=== PATIENT | male | born 1940 | race Caucasian/White ===

== ENCOUNTER 2018-04-05 18:20 | Emergency (ER) | payer OTHER, MEDICARE ==
[2018-04-05 18:33] VITALS: TEMP 98; BMI 25.0
--- NOTE | 2018-04-05 19:31 | PDOC ---
History of Present Illness - General History Source: Patient Exam Limitations: No Limitations - History of Present Illness Initial Comments: 04/05/18 20:00 A portion of this note was documented by scribe services under my direction. I have reviewed the details of the note, within reason, and agree with the documentation with the following case summary and management plan written by me. Patient treated in the ED. Nursing notes are reviewed and incorporated into the medical decision-making. Vital signs reviewed. Assessment and plan: This is an 77-year-old male with history of coronary artery disease status post bypass in the past. He comes in complaining of hypertension. Patient's blood pressure is 166/92 here in the emergency department. Patient is on Coreg. Patient was told he should double up the dose of his Coreg however patient said when he does that his blood pressure is good but he gets a headache and feels lightheaded and fatigued. Patient did not take additional medication today. Patient otherwise denies any chest pain, shortness of breath, nausea, diaphoresis or any complaints at this time. Patient has not been put on a second blood pressure medication. I did start patient on losartan and Zofran prescription to his pharmacy and told him to follow-up with his doctor on Thursday and that his doctor know what I started him on and to reevaluate him. Patient discharged home. <Tom Chapman I - Last Filed: 04/05/18 19:59> - History of Present Illness Initial Comments: 04/05/18 20:04 The patient is a 77 year old male, with a significant PMH of CAD s/p bypass and HTN who presents to the emergency department with elevated blood pressure. Patient states his blood pressure is 166/93. The patient is currently on carvedilol two pills twice a day, but typically gets headaches after taking his medication. Patient has not yet discussed this with his primary care physician. The patient denies chest pain, shortness of breath, headache and dizziness. Denies fever, chills, nausea, vomit, diarrhea and constipation. Denies dysuria, frequency, urgency and hematuria. Allergies: NKA Past surgical history: None reported, Social history: No reported alcohol, drug or cigarette use. Adult ROS General: No fevers or chills, no weakness, no weight loss. (+) High bp. HEENT: No change in vision. No sore throat,. No ear pain CardioVascular: No chest pain or shortness of breath Respiratory:No cough, or wheezing. Gastrointestinal: no nausea, vomiting, diarrhea or constipation, No rectal bleeding Genitourinary: No dysuria, hematuria, or frequency Musculoskeletal: No joint or muscle pain or swelling Neurologic: (+) Headache. No vertigo, dizziness or loss of consciousness Psychiatric: nor depression Skin: No rashes or easy bruising Endocrine: no increased thirst or abnormal weight change Allergic: no skin or latex allergy All other systems reviewed and normal Adult Exam: General: Well-nourished well-developed individual, no acute distress HEENT: Throat: Normal, tonsils normal, no erythema or exudate Neck: Supple, no meningeal signs, no lymphadenopathy Eyes::Pupils equal reactive and round, extraocular motion intact Chest: Nontender to palpation Cardiac: S1-S2 normal, regular rate and rhythm, no murmurs rubs or gallops Respiratory: Lungs clear to auscultation bilateral Abdomen: Soft, nondistended, normal bowel sounds, nontender to palpation diffusely Extremities: Warm, dry, no cyanosis, clubbing, or edema Skin: No rashes Neuro: Alert and oriented x3, nonfocal exam, grossly intact, normal gait Psych: Normal mood and affect <Joellen Fairbanks - Last Filed: 04/05/18 20:27> - General Chief Complaint: Blood Pressure Problem Stated Complaint: HIGH BLOOD PRESSURE Time Seen by Provider: 04/05/18 19:09 Past History - Past Medical History Cardiac Disorders: Yes (CAD, DOUBLE BYPASS) COPD: No - Surgical History Cardiac Surgery: Yes (CABG 7 years ago.) - Immunization History Immunization Up to Date: No - Suicide/Smoking/Psychosocial Hx Smoking Status: No Smoking History: Never smoked Have you smoked in the past 12 months: No Number of Cigarettes Smoked Daily: 0 Information on smoking cessation initiated: No Hx Alcohol Use: No <Tom Chapman I - Last Filed: 04/05/18 19:59> <Joellen Fairbanks - Last Filed: 04/05/18 20:27> - Past Medical History Allergies/Adverse Reactions: Allergies Allergy/AdvReac Type Severity Reaction Status Date / Time No Known Allergies Allergy Verified 04/05/18 18:23 Home Medications: Ambulatory Orders Carvedilol [Coreg] 6.25 mg PO Q12H 04/05/18 Losartan Potassium [Cozaar -] 50 mg PO DAILY #30 tablet 04/05/18 *Physical Exam - Vital Signs Last Vital Signs Temp Pulse Resp BP Pulse Ox 98 F 58 L 16 166/92 100 04/05/18 18:20 04/05/18 18:20 04/05/18 18:20 04/05/18 18:20 04/05/18 18:20 <Tom Chapman I - Last Filed: 04/05/18 19:59> - Vital Signs Last Vital Signs Temp Pulse Resp BP Pulse Ox 98 F 56 L 16 158/77 99 04/05/18 18:20 04/05/18 19:45 04/05/18 19:45 04/05/18 19:45 04/05/18 19:45 <Joellen Fairbanks - Last Filed: 04/05/18 20:27> *DC/Admit/Observation/Transfer - Discharge Dispostion Decision to Admit order: No <Tom Chapman I - Last Filed: 04/05/18 19:59> - Attestations Scribe Attestion: 04/05/18 20:27 Documentation prepared by Joellen Fairbanks, acting as nurses medical assistants phlebotomists for Tom Chapman MD. <Joellen Fairbanks - Last Filed: 04/05/18 20:27> Diagnosis at time of Disposition: Hypertension Qualifiers: Hypertension type: essential hypertension Qualified Code(s): I10 - Essential ( primary) hypertension - Discharge Dispostion Disposition: HOME Condition at time of disposition: Stable - Prescriptions Prescriptions: Losartan Potassium [Cozaar -] 50 mg PO DAILY #30 tablet - Referrals Referrals: Jose Garcia MD [Primary Care Provider] - - Patient Instructions Additional Instructions: I added another medication to your blood pressure medication. Go to the pharmacy and get the prescription for losartan take it once a day in the morning with your other medication. Follow-up with your doctor on Thursday let your doctor know about the losartan. Return to the emergency department immediately with ANY new, persistent or worsening symptoms. Continue any medications as previously prescribed by your physician. You should follow up with your primary doctor as soon as possible regarding today's emergency department visit. . Please make sure your doctor reviews the results of your emergency evaluation. Thank you for coming to the Emergency Department today for your care. It was a pleasure to see you today. Please note that your evaluation is INCOMPLETE until you follow-up with your doctor. - Post Discharge Activity
[2018-04-05 19:47] VITALS: BP 158/77; PULSE 56
== END 2018-04-05 19:47 | disposition home or self-care (01) ==
LOC: FER 18:20
DX: I10 Essential (primary) hypertension (principal); I25.10 Atherosclerotic heart disease of native coronary artery without angina pectoris
CPT/HCPCS: 99283-25

== ENCOUNTER 2018-04-12 16:10 | Emergency (ER) | payer OTHER, MEDICARE ==
--- NOTE | 2018-04-12 16:14 | PDOC ---
History of Present Illness <Xavier Everett - Last Filed: 04/12/18 16:32> <Chela Cifuentes - Last Filed: 04/12/18 16:42> - General Chief Complaint: Blood Pressure Problem Stated Complaint: HIGH BLOOD PRESSURE Time Seen by Provider: 04/12/18 16:14 Past History - Past Medical History Cardiac Disorders: Yes (CAD, DOUBLE BYPASS) COPD: No - Surgical History Cardiac Surgery: Yes (CABG 7 years ago.) - Immunization History Immunization Up to Date: No - Suicide/Smoking/Psychosocial Hx Smoking Status: No Smoking History: Never smoked Have you smoked in the past 12 months: No Number of Cigarettes Smoked Daily: 0 Hx Alcohol Use: No <Xavier Everett - Last Filed: 04/12/18 16:32> <Cehla Cifuentes - Last Filed: 04/12/18 16:42> - Past Medical History Allergies/Adverse Reactions: Allergies Allergy/AdvReac Type Severity Reaction Status Date / Time No Known Allergies Allergy Verified 04/05/18 18:23 Home Medications: Ambulatory Orders Carvedilol [Coreg] 6.25 mg PO Q12H 04/05/18 Losartan Potassium [Cozaar -] 50 mg PO HS 04/12/18 *Physical Exam - Vital Signs Last Vital Signs Temp Pulse Resp BP Pulse Ox 97.6 F 58 L 16 165/75 100 04/12/18 16:11 04/12/18 16:11 04/12/18 16:11 04/12/18 16:11 04/12/18 16:11 <Chela Cifuentes - Last Filed: 04/12/18 16:42> Moderate Sedation - Procedure Monitoring Vital Signs: Procedure Monitoring Vital Signs Temperature 97.6 F 04/12/18 16:11 Pulse Rate 58 L 04/12/18 16:11 Respiratory Rate 16 04/12/18 16:11 Blood Pressure 165/75 04/12/18 16:11 O2 Sat by Pulse Oximetry (%) 100 04/12/18 16:11 <Chela Cifuentes - Last Filed: 04/12/18 16:42> *DC/Admit/Observation/Transfer - Discharge Dispostion Decision to Admit order: No <Xavier Everett - Last Filed: 04/12/18 16:32> <Chela Cifuentes - Last Filed: 04/12/18 16:42> Diagnosis at time of Disposition: Lightheadedness - Discharge Dispostion Disposition: HOME Condition at time of disposition: Good - Referrals Referrals: Jose Garcia MD [Primary Care Provider] - - Patient Instructions Printed Discharge Instructions: DI for High Blood Pressure, How to Monitor Your Blood Pressure at Home Additional Instructions: Your pressure was a little bit high when you came here. You have high blood pressure because your arteries and the reset of your blood vessels are smaller due to plaque build up. Please continue your blood pressure ,medication and follow up with your wood model builder. Please return to the ED if you have any new or worsening symptoms. Vital signs this visit: BP 165/75, HR 58. - Post Discharge Activity
[2018-04-12 16:20] VITALS: BP 165/75; PULSE 58; TEMP 97.6; BMI 25.0
--- NOTE | 2018-04-12 16:28 | PDOC ---
Attending Attestation - Resident Resident Name: Xavier Everett - HPI HPI: 04/12/18 16:42 pt presents to the ED complaining of brief episode of light headness and elevated blood pressures at home with home BP machine. Denies chest pain or shortness of breath or any other complaints. - Physicial Exam PE: 04/12/18 16:45 Agree with resident exam. Patient is alert and awake and in no acute distress. Ambulatory in the ED with steady gait. - Medical Decision Making 04/12/18 16:50 Pt presents to the ED complaining of miminal and transient lightheadness and elevated BP. B 165/75 in the ED. Patient instructed to follow up with his PMD.
== END 2018-04-12 16:53 | disposition home or self-care (01) ==
LOC: FER 16:10 → EDBD 16:10 → FER 16:53
DX: R42 Dizziness and giddiness (principal); I10 Essential (primary) hypertension; I25.10 Atherosclerotic heart disease of native coronary artery without angina pectoris; Z95.1 Presence of aortocoronary bypass graft
CPT/HCPCS: 99282-25

== ENCOUNTER 2018-05-11 14:10 | Emergency (ER) | payer OTHER, MEDICARE ==
[2018-05-11 14:22] VITALS: TEMP 97.4; BMI 24.3
[2018-05-11] MEDS ORDERED: ACETAMINOPHEN 325 MG TABLET (FP) PO ONE (14:52)
[2018-05-11] MEDS ORDERED: ACETAMINOPHEN 325 MG TABLET (FP) ONE (14:55)
[2018-05-11 15:18] LABS: BASO % 1.4 % (0-2.0); EOS % 0.6 % (0-4.5); HEMATOCRIT 46.7 % (35.4-49); HEMOGLOBIN 15.7 GM/dl (11.7-16.9); LYMPH % 12.8 % (8-40); MCH 32.8 pg (25.7-33.7); MCHC 33.7 g/dl (32.0-35.9); MEAN CELL VOLUME 97.3 fl (80-96); MONO % 7.3 % (3.8-10.2); NEUT % 77.9 % (42.8-82.8); PLATELET COUNT 288 K/MM3 (134-434); RDW 12.7 % (11.9-15.9); WHITE BLOOD COUNT 8.9 K/mm3 (4.0-10.8)
--- NOTE | 2018-05-11 15:25 | PDOC ---
History of Present Illness - General Chief Complaint: Headache Stated Complaint: HEADACHE AND HYPERTENSION Time Seen by Provider: 05/11/18 14:13 History Source: Patient Exam Limitations: No Limitations - History of Present Illness Initial Comments: 05/11/18 15:20 CHIEF COMPLAINT: Headache since this morning HISTORY OF PRESENT ILLNESS: This is a 77-year-old man with a history of hypertension for the last couple of months. Patient also has a history of coronary bypass 14 years ago. He does not believe in medication and did not take medication after his bypass surgery. Patient has been monitoring his blood pressure and is concerned that the medication for his blood pressure is not good for him. He has been working with Dr. Maribell Rhodes, food taster, to adjust his blood pressure medication. Most recently he has been on losartan. He varies dose between 50 and 75 mg per day depending on how he feels. His blood pressure has been running around 140-160/80. Last night he slept poorly, he is very concerned that the blood pressure medication is not good for him. In general, he believes in spiritual care more than medication, but his food taster strongly recommended that he continue it. This morning he noted some left-sided headache from the left temporal, parietal, and occipital region. The pain was 5 out of 10, slow in onset, and he became concerned because his blood pressure was elevated. He did take 50 mg of losartan this morning around 10 AM. He comes to the emergency department for evaluation of his headache. He denies any focal numbness or weakness. He states his brain feels foggy over the past months due to the losartan blood pressure medication. There is no chest pain. There is no shortness of breath. There is no focal numbness or weakness. There is no complaint of changes in urinary function. REVIEW OF SYSTEMS: GENERAL/CONSTITUTIONAL: No fever or chills. No weakness. No weight change. HEAD, EYES, EARS, NOSE AND THROAT: No change in vision. No ear pain or discharge. No sore throat. CARDIOVASCULAR: No chest pain or shortness of breath. RESPIRATORY: No cough, wheezing, or hemoptysis. GASTROINTESTINAL: No nausea, vomiting, diarrhea or constipation. No rectal bleeding. GENITOURINARY: No dysuria, frequency, or change in urination. MUSCULOSKELETAL: No joint or muscle swelling or pain. No neck or back pain. SKIN AND BREASTS: No rash or easy bruising. NEUROLOGIC: + Positive headache. No vertigo. No loss of consciousness. No gait disturbance. PSYCHIATRIC: No depression or anxiety. ENDOCRINE: No increased thirst. No abnormal weight change. HEMATOLOGIC/LYMPHATIC: No anemia, easy bleeding, or history of blood clots. ALLERGIC/IMMUNOLOGIC: No hives or skin allergy. No latex allergy. Past History - Past Medical History Allergies/Adverse Reactions: Allergies Allergy/AdvReac Type Severity Reaction Status Date / Time No Known Allergies Allergy Verified 05/11/18 14:11 Home Medications: Ambulatory Orders Losartan Potassium [Cozaar -] 50 mg PO DAILY 04/12/18 Cardiac Disorders: Yes (CAD, DOUBLE BYPASS) COPD: No - Surgical History Cardiac Surgery: Yes (CABG 7 years ago.) - Immunization History Immunization Up to Date: No - Suicide/Smoking/Psychosocial Hx Smoking Status: No Smoking History: Never smoked Have you smoked in the past 12 months: No Number of Cigarettes Smoked Daily: 0 Information on smoking cessation initiated: No Hx Alcohol Use: No Drug/Substance Use Hx: No Substance Use Type: None *Physical Exam - Vital Signs Last Vital Signs Temp Pulse Resp BP Pulse Ox 97.4 F L 72 16 175/108 H 100 05/11/18 14:11 05/11/18 14:11 05/11/18 14:11 05/11/18 14:11 05/11/18 14:11 - Physical Exam Comments: 05/11/18 15:24 GENERAL: The patient is awake, alert, and fully oriented, in no acute distress. HEAD: Normal with no signs of trauma. EYES: Pupils equal, round and reactive to light, extraocular movements intact, sclera anicteric, conjunctiva clear. ENT: Ears normal, nares patent, oropharynx clear without exudates. Moist mucous membranes. NECK: Normal range of motion, supple without lymphadenopathy, JVD, or masses. LUNGS: Breath sounds equal, clear to auscultation bilaterally. No wheezes, and no crackles. HEART: Regular rate and rhythm, normal S1 and S2 without murmur, rub or gallop. ABDOMEN: Soft, nontender, normoactive bowel sounds. No guarding, no rebound. No masses. EXTREMITIES: Normal range of motion, no edema. No clubbing or cyanosis. No cords, erythema, or tenderness. NEURO: Mental status: The patient is oriented x3. Cranial nerves: Cranial nerves II through XII are intact Motor: The upper extremities are 5 over 5 in all muscle groups. The lower extremities are 5 over 5 in all muscle groups. Sensation: Sensation is intact to light touch throughout. Cerebellar: Nyayyq-dndmnd-rcin is normal in both upper extremities. Heel-knee- duval is normal in both lower extremities. Reflexes: 2+ and symmetric in the upper and lower extremities. Gait: Normal. Heel and toe walking are normal. Tandem gait is normal. PSYCH: Normal mood, normal affect. SKIN: Warm, Dry, normal turgor, no rashes or lesions noted. Moderate Sedation - Procedure Monitoring Vital Signs: Procedure Monitoring Vital Signs Temperature 97.4 F L 05/11/18 14:11 Pulse Rate 72 05/11/18 14:11 Respiratory Rate 16 05/11/18 14:11 Blood Pressure 175/108 H 05/11/18 14:11 O2 Sat by Pulse Oximetry (%) 100 05/11/18 14:11 Heart Score/ECG Review - ECG Impressions Comment:: 05/11/18 15:24 Twelve-lead EKG shows normal sinus rhythm with occasional premature atrial beats. The axis is normal. The intervals are normal. There is incomplete right bundle-branch block seen in leads V2 and V3. There is lateral T-wave inversion in leads 1, aVL, and V5 and V6. There is no old EKG for comparison. Impression: Normal sinus rhythm with occasional premature atrial complexes and nonspecific T-wave changes. No old EKG for comparison. ED Treatment Course - LABORATORY CBC & Chemistry Diagram: 05/11/18 15:00 05/11/18 15:00 - Medications Given in the ED: ED Medications Discontinued Medications Generic Name Dose Route Start Last Admin Trade Name Freq PRN Reason Stop Dose Admin Acetaminophen 650 mg 05/11/18 14:52 05/11/18 15:03 Tylenol - PO 05/11/18 14:53 650 mg ONCE ONE Administration Medical Decision Making - Medical Decision Making 05/11/18 16:10 Patient is a 77-year-old man with hypertension. He was recently diagnosed and was started on medication about 2 months ago. He feels the medication is causing side effects and making his brain feel foggy. Because of this he has been taking a lower dose of the losartan 50 mg daily. Today his blood pressure was elevated and he had some left-sided headache. After arriving in the ED has left-sided headache went away with Tylenol. Initially I discussed my recommendation for head CT scan, but the patient states the headache is resolving and he did not want to have a head CT scan performed to rule out hypertensive related problems in the brain. He states the risks of radiation from CT are too high and he does not want to have the study performed. On examination, there are no abnormal findings. Neck is supple. Lungs are clear. Heart is regular rhythm without murmur. Abdomen is benign. Neurological examination is fully normal. Laboratory workup reveals normal renal function. Twelve-lead EKG shows normal sinus rhythm with nonspecific T-wave abnormality in the anterolateral leads. There is no old EKG for comparison. Impression: Hypertension. Headache, resolved. Nonspecific ST-T wave abnormality on EKG without any symptoms of acute coronary syndrome or congestive heart failure. Plan: Patient has follow-up scheduled with his food taster on May 13. He plans to discuss a change in medication with his doctor at that time. In the meantime, he has been advised to continue the losartan to maintain blood pressure control and he agrees with this plan. *DC/Admit/Observation/Transfer Diagnosis at time of Disposition: Hypertension Qualifiers: Hypertension type: essential hypertension Qualified Code(s): I10 - Essential ( primary) hypertension Headache Qualifiers: Headache type: tension-type Headache chronicity pattern: acute headache Intractability: not intractable Qualified Code(s): G44.209 - Tension-type headache, unspecified, not intractable - Discharge Dispostion Condition at time of disposition: Stable Decision to Admit order: No - Referrals Referrals: Jose Garcia MD [Primary Care Provider] - Alina Rhodes MD [Staff Physician] - 2 Days - Patient Instructions Printed Discharge Instructions: DI for High Blood Pressure Additional Instructions: Today you were evaluated for high blood pressure and a headache. The headache resolved with Tylenol. Your blood tests were normal with good kidney function. Your blood pressure came down while under observation in the emergency department. You are advised to follow-up with your food taster as scheduled on . You may consider an alternative blood pressure medication such as a calcium channel adolfo or other medication. Please discuss this with your food taster. Rest at home, continue aerobic exercise to reduce your blood pressure, it a low sodium diet, and follow-up with the doctor for medication adjustment. Return to the emergency department for any severe or progressive symptoms. - Post Discharge Activity
[2018-05-11 15:35] LABS: ALK PHOS 59 U/L (32-92); ANION GAP 6 MMOL/L (8-16); BILIRUBIN,TOTAL 0.8 mg/dl (0.2-1.0); BLOOD UREA NITROGEN 12 mg/dl (7-18); CALCIUM 9.1 mg/dl (8.4-10.2); CHLORIDE 102 mmol/L (98-107); CO2 28 mmol/L (22-28); GLUCOSE,RANDOM 91 mg/dl (74-106); POTASSIUM 4.5 mmol/L (3.5-5.1); SGOT/AST 21 U/L (10-42); SGPT/ALT 22 U/L (10-40); SODIUM 136 mmol/L (136-145); TOT PROT 6.6 g/dl (6.4-8.3)
[2018-05-11 16:01] VITALS: BP 158/85; PULSE 75
--- NOTE | 2018-05-12 19:01 | EKG ---
Test Reason : Blood Pressure : / mmHG Vent. Rate : 067 BPM Atrial Rate : 067 BPM P-R Int : 162 ms QRS Dur : 090 ms QT Int : 396 ms P-R-T Axes : -12 072 091 degrees QTc Int : 418 ms SINUS RHYTHM WITH PREMATURE ATRIAL COMPLEXES NONSPECIFIC T WAVE ABNORMALITY ABNORMAL ECG NO PREVIOUS ECGS AVAILABLE Confirmed by RASHEED PRITCHARD MD ([id number]) on 05/12/2018 7:00:38 PM Referred By: CHRISTEN CASTRO Confirmed By:RASHEED PRITCHARD MD
== END 2018-05-11 16:24 | disposition home or self-care (01) ==
LOC: FER 14:10
DX: I10 Essential (primary) hypertension (principal); G44.209 Tension-type headache, unspecified, not intractable
CPT/HCPCS: 36415; 80053; 85025; 93005; 99282-25

== ENCOUNTER 2019-07-09 23:33 | Emergency (ER) | payer OTHER, MEDICARE ==
[2019-07-09 23:43] VITALS: BP 167/102; PULSE 75; TEMP 97.6; BMI 26.6
[2019-07-10] MEDS ORDERED: MAGNESIUM CITRATE 300 ML BOTTLE PO ONE (00:07)
--- NOTE | 2019-07-10 00:07 | PDOC ---
History of Present Illness - General Chief Complaint: Constipation Stated Complaint: CONSTIPATION Time Seen by Provider: 07/09/19 23:52 History Source: Patient Exam Limitations: No Limitations - History of Present Illness Initial Comments: 07/10/19 00:02 This is a 79-year-old male who comes in complaining of no bowel movement for 4 days patient said he was on vacation and his diet was different than usual and now he is constipated. Patient is complaining of some abdominal cramps and the sensation that he is unable to defecate. Patient otherwise denies any complaints. Patient said he is passing gas. Allergies: as per nursing notes Past Medical History: none Social history: Lives with family. No smoking. No alcohol. No illicit drugs. Surgical history: None General: No fevers or chills, no weakness, no weight loss HEENT: No change in vision. No sore throat,. No ear pain CardioVascular: no chest discomfort. No shortness of breath Respiratory:No cough, or wheezing. Gastrointestinal: no nausea, vomiting, diarrhea or constipation, No rectal bleeding Genitourinary: No dysuria, hematuria, or frequency Musculoskeletal: No joint or muscle pain or swelling Neurologic: No headache, vertigo, dizziness or loss of consciousness Psychiatric: nor depression Skin: No rashes or easy bruising Endocrine: no increased thirst or abnormal weight change Allergic: no skin or latex allergy All other systems reviewed and normal GENERAL: The patient is awake, alert, and fully oriented, in no acute distress. HEENT:Head is normal with no signs of trauma. Eyes: Pupils equal, round and reactive to light, Ears, and Throat are normal. Neck is supple. No Lymphadenopathy. EXTREMITIES:atraumatic, Normal range of motion, no edema. NEUROLOGICAL: Normal speech, normal gait. PSYCH: Normal mood, normal affect. SKIN: Warm, Dry, normal turgor, no rashes or lesions noted. Procedure note digital disimpaction Rectal exam the rectal vault does have a large amount of hard stool in it however was unable to disimpact it secondary to patient has had anal surgery for rectal fistula so I administered a Fleet enema post Fleet enema patient said he did have some success with having a small to moderate bowel movement. Assessment and plan: This is a 79-year-old male who comes in complaining of constipation. Patient was unable to be manually disimpacted secondary to his rectal anatomy however he was given a fleets enema with some success. Patient was advised to drink the bottle of mag citrate he was given in the morning and purchase an additional enema. Past History - Past Medical History Allergies/Adverse Reactions: Allergies Allergy/AdvReac Type Severity Reaction Status Date / Time No Known Allergies Allergy Verified 05/11/18 14:11 Home Medications: Ambulatory Orders Losartan Potassium [Cozaar -] 50 mg PO DAILY 04/12/18 Cardiac Disorders: Yes (CAD, DOUBLE BYPASS) COPD: No - Surgical History Cardiac Surgery: Yes (CABG 7 years ago.) - Immunization History Immunization Up to Date: No - Psycho Social/Smoking Cessation Hx Smoking Status: No Smoking History: Unknown if ever smoked Have you smoked in the past 12 months: No Number of Cigarettes Smoked Daily: 0 Information on smoking cessation initiated: No Hx Alcohol Use: No Drug/Substance Use Hx: No Substance Use Type: None Abd/GI Specific PMHX - Complaint Specific PMHX GERD: No *Physical Exam - Vital Signs Last Vital Signs Temp Pulse Resp BP Pulse Ox 97.6 F 75 16 167/102 H 99 07/09/19 23:39 07/09/19 23:39 07/09/19 23:39 07/09/19 23:39 07/09/19 23:39 Discharge - Discharge Information Problems reviewed: Yes Clinical Impression/Diagnosis: Constipation Qualifiers: Constipation type: unspecified constipation type Qualified Code(s): K59.00 - Constipation, unspecified Condition: Stable Disposition: HOME - Admission No - Follow up/Referral Referrals: Jose Garcia MD [Primary Care Provider] - - Patient Discharge Instructions Additional Instructions: Drink the bottle of mag citrate in the morning. However if you do not have an adequate bowel movement get the enema and administer as described. Return to the emergency department immediately with ANY new, persistent or worsening symptoms. Continue any medications as previously prescribed by your physician. You should follow up with your primary doctor as soon as possible regarding today's emergency department visit. . Please make sure your doctor reviews the results of your emergency evaluation. Thank you for coming to the Emergency Department today for your care. It was a pleasure to see you today. Please note that your evaluation is INCOMPLETE until you follow-up with your doctor. - Post Discharge Activity
[2019-07-10] MEDS ORDERED: MAGNESIUM CITRATE 300 ML BOTTLE ONE (00:10)
== END 2019-07-10 00:12 | disposition home or self-care (01) ==
LOC: FER 23:33
DX: K59.00 Constipation, unspecified (principal); I25.10 Atherosclerotic heart disease of native coronary artery without angina pectoris
CPT/HCPCS: 99283-25

== ENCOUNTER 2021-02-14 13:56 | Emergency (ER) | payer OTHER, MEDICARE ==
[2021-02-14 14:09] VITALS: BMI 24.3
[2021-02-14] MEDS ORDERED: ACETAMINOPHEN 325 MG TABLET (FP) PO ONE (15:01)
[2021-02-14] MEDS ORDERED: ACETAMINOPHEN 325 MG TABLET (FP) ONE (15:10)
[2021-02-14 15:32] VITALS: BP 181/103; PULSE 70; TEMP 98.4
== END 2021-02-14 16:24 | disposition home or self-care (01) ==
LOC: FER 13:56
DX: R51.9 Headache, unspecified (principal)
CPT/HCPCS: 70450-TC; 99284-25

== ENCOUNTER 2021-03-22 15:00 | Inpatient (IN) | payer OTHER, MEDICARE ==
[2021-03-22] MEDS ORDERED: SODIUM CHLORIDE 0.9% 1000 ML INFUS.BAG IV ONE (15:50)
[2021-03-22] MEDS ORDERED: ACETAMINOPHEN 1000 MG/100 ML VIAL IVPB ONE (15:50)
[2021-03-22] MEDS ORDERED: ACETAMINOPHEN INJECTION 100 ML IVPB ONE (16:03)
[2021-03-22 16:35] LABS: BASO % 1.9 % (0-2.0); EOS % 0.5 % (0-4.5); HEMATOCRIT 42.8 % (35.4-49); HEMOGLOBIN 15.1 GM/dl (11.7-16.9); LYMPH % 10.3 % (8-40); MCH 34.3 pg (25.7-33.7); MCHC 35.2 g/dl (32.0-35.9); MEAN CELL VOLUME 97.4 fl (80-96); MEAN PLT VOLUME 7.7 fl (7.5-11.1); MONO % 10.1 % (3.8-10.2); NEUT % 77.2 % (42.8-82.8); PLATELET COUNT 284 10^3/uL (134-434); RBC 4.39 M/mm3 (4.00-5.60); RDW 11.9 % (11.9-15.9); WHITE BLOOD COUNT 9.3 K/mm3 (4.0-10.8)
[2021-03-22 16:43] LABS: ALBUMIN 4.1 g/dl (3.4-5.0); BILIRUBIN,TOTAL 0.8 mg/dl (0.2-1); CALCIUM 9.2 mg/dl (8.5-10); TOT PROT 6.5 g/dl (6.4-8.2)
[2021-03-22 21:05] LABS: CREATININE 0.9 mg/dl (0.55-1.3); MAGNESIUM 2.1 mg/dL (1.8-2.4)
[2021-03-22 21:28] VITALS: BMI 24.0
[2021-03-23] MEDS: HEPARIN NA (PORCINE) 5,000 UNITS/ML 1ML VIAL SQ SCH ×4 (05:14→21:05)
[2021-03-23 06:25] LABS: BASO % 0.7 % (0-2.0); EOS % 0.9 % (0-4.5); HEMATOCRIT 40.6 % (35.4-49); HEMOGLOBIN 14.8 GM/dL (11.7-16.9); LYMPH % 17.4 % (8-40); MCH 34.7 pg (25.7-33.7); MCHC 36.4 g/dl (32.0-35.9); MEAN CELL VOLUME 95.4 fl (80-96); MEAN PLT VOLUME 7.7 fl (7.5-11.1); MONO % 11.3 % (3.8-10.2); NEUT % 69.7 % (42.8-82.8); PLATELET COUNT 272 10^3/uL (134-434); RBC 4.25 M/mm3 (4.00-5.60); RDW 12.6 % (11.9-15.9); WHITE BLOOD COUNT 6.2 K/mm3 (4.0-10.0)
[2021-03-23 06:45] LABS: INR 0.98 (0.83-1.09); PROTHROMBIN TIME (PATIENT) 11.5 SEC (9.7-13.0)
[2021-03-23 06:48] LABS: ACTIVATED PTT 27.1 SECONDS (25.2-36.5)
[2021-03-23 06:52] LABS: CALCIUM 8.5 mg/dL (8.5-10.1)
[2021-03-23 06:53] LABS: BLOOD UREA NITROGEN 9.3 mg/dL (7-18)
[2021-03-23] MEDS ORDERED: DEXTROSE 5%-WATER - 1,000 ML IV SCH (10:30)
[2021-03-23 12:18] LABS: EPITHELIAL CELLS RARE /hpf
[2021-03-23 14:34] LABS: CALCIUM 8.9 mg/dl (8.5-10); CREATININE 1.1 mg/dl (0.55-1.3)
[2021-03-24] MEDS: HEPARIN NA (PORCINE) 5,000 UNITS/ML 1ML VIAL SQ SCH (06:44)
[2021-03-24 06:52] VITALS: BP 151/87; PULSE 78; TEMP 97.3
[2021-03-24 09:09] LABS: BASO % 3.3 % (0-2.0); RDW 11.9 % (11.9-15.9); WHITE BLOOD COUNT 6.6 K/mm3 (4.0-10.8)
[2021-03-24 09:21] LABS: EOS % 0.6 % (0-4.5); HEMOGLOBIN 14.7 GM/dl (11.7-16.9); LYMPH % 8.1 % (8-40); MCH 33.3 pg (25.7-33.7); MCHC 33.4 g/dl (32.0-35.9); MEAN CELL VOLUME 99.8 fl (80-96); MEAN PLT VOLUME 8.1 fl (7.5-11.1); MONO % 11.8 % (3.8-10.2); NEUT % 76.2 % (42.8-82.8); PLATELET COUNT 282 10^3/uL (134-434); RBC 4.41 M/mm3 (4.00-5.60)
[2021-03-24 09:25] LABS: BILIRUBIN,TOTAL 0.9 mg/dl (0.2-1); CALCIUM 9.1 mg/dl (8.5-10); CREATININE 1.1 mg/dl (0.55-1.3); TOT PROT 6.2 g/dl (6.4-8.2)
[2021-03-24] MEDS ORDERED: SODIUM CHLORIDE 1 GM TABLET PO ONE (09:47)
== END 2021-03-24 12:30 | disposition home or self-care (01) | DRG 641 ==
LOC: FER 15:00 → FM/S 21:01
PROVIDERS: ADMIT Family Medicine; ATTEND Nurse Practitioner Family
DX: E87.1 Hypo-osmolality and hyponatremia (principal); R51.9 Headache, unspecified; I10 Essential (primary) hypertension; I25.10 Atherosclerotic heart disease of native coronary artery without angina pectoris; Z95.1 Presence of aortocoronary bypass graft; E87.6 Hypokalemia; R42 Dizziness and giddiness
CPT/HCPCS: 36415; 70450-TC; 71045-TC-FY; 80048; 80053; 81003; 81015; 82436; 82533; 82550; 83735; 83930; 83935; 84133; 84300; 84443; 84484; 85025; 85610; 85730; 93005; 99285-25; C9803; J0131; J1644; U0003; U0005

== ENCOUNTER 2021-04-16 12:00 | Emergency (ER) | payer OTHER, MEDICARE ==
[2021-04-16] MEDS ORDERED: MAG HYDROX/AL HYDROX/SIMETH 30 ML UNIT-DOSE CUP PO ONE (12:05)
[2021-04-16] MEDS ORDERED: FAMOTIDINE 10 MG TABLET PO ONE (12:05)
[2021-04-16 12:31] VITALS: TEMP 97.7; BMI 23.1
[2021-04-16] MEDS ORDERED: MAG HYDROX/AL HYDROX/SIMETH 30 ML UNIT-DOSE CUP ONE (12:34)
[2021-04-16] MEDS ORDERED: FAMOTIDINE 20 MG TABLET ONE (12:34)
[2021-04-16 13:27] LABS: ALBUMIN 3.9 g/dl (3.4-5.0); BILIRUBIN,TOTAL 0.7 mg/dl (0.2-1); CREATININE 1.1 mg/dl (0.55-1.3); TOT PROT 6.3 g/dl (6.4-8.2)
[2021-04-16 13:59] LABS: BASO % 0.5 % (0-2.0); EOS % 0.8 % (0-4.5); HEMATOCRIT 38.4 % (35.4-49); HEMOGLOBIN 13.9 GM/dL (11.7-16.9); LYMPH % 9.1 % (8-40); MCH 34.8 pg (25.7-33.7); MCHC 36.2 g/dl (32.0-35.9); MEAN CELL VOLUME 96.1 fl (80-96); MEAN PLT VOLUME 8.1 fl (7.5-11.1); MONO % 8.9 % (3.8-10.2); NEUT % 80.7 % (42.8-82.8); PLATELET COUNT 226 10^3/uL (134-434); RDW 13.1 % (11.9-15.9); WHITE BLOOD COUNT 9.4 K/mm3 (4.0-10.0)
[2021-04-16 15:29] VITALS: BP 151/87; PULSE 79
== END 2021-04-16 15:58 | disposition home or self-care (01) ==
LOC: FER 12:00
DX: R10.9 Unspecified abdominal pain (principal)
CPT/HCPCS: 36415; 71045-TC-FY; 80053; 84484; 85025; 93005; 99285-25

== ENCOUNTER 2022-09-09 18:21 | Emergency (ER) | payer OTHER, MEDICARE ==
[2022-09-09 18:34] VITALS: BP 183/98; PULSE 87; RESP 16; TEMP 98.3; BMI 24.3
[2022-09-09 19:01] LABS: EPITHELIAL CELLS FEW /hpf
[2022-09-09 20:04] LABS: HEMATOCRIT 43.3 % (35.4-49); HEMOGLOBIN 15.1 G/dL (11.7-16.9); MCH 34.6 pg (25.7-33.7); MCHC 34.9 g/dl (32.0-35.9); MEAN PLT VOLUME 8.3 fl (7.5-11.1); PLATELET COUNT 205.6 10^3/uL (134-434); RBC 4.37 10^6/uL (4.00-5.60); RDW 13.2 % (11.9-15.9); WHITE BLOOD COUNT 7.9 10^3/uL (4.0-10.8)
[2022-09-09 20:15] LABS: ALBUMIN 3.9 g/dl (3.4-5.0); BILIRUBIN,TOTAL 0.5 mg/dl (0.2-1); CALCIUM 8.8 mg/dl (8.5-10); CREATININE 1.1 mg/dl (0.55-1.3); TOT PROT 6.6 g/dl (6.4-8.2)
== END 2022-09-09 20:42 | disposition home or self-care (01) ==
LOC: FER 18:21
DX: R31.9 Hematuria, unspecified (principal)
CPT/HCPCS: 36415; 80053; 81003; 81015; 85027; 87086; 99283-25

== ENCOUNTER 2023-09-08 18:05 | Emergency (ER) | payer OTHER, MEDICARE ==
[2023-09-08 18:24] VITALS: BP 163/94; PULSE 81; RESP 18; TEMP 98.4; BMI 24.3
[2023-09-08] MEDS: SODIUM PHOSPHATE/NA BIPHOS 133 ML ENEMA PR ONE (19:35)
== END 2023-09-08 19:56 | disposition home or self-care (01) ==
LOC: FER 18:05
DX: K59.00 Constipation, unspecified (principal); K62.89 Other specified diseases of anus and rectum
CPT/HCPCS: 99283-25